=== PATIENT | male | born 1960 | race Caucasian/White ===

== ENCOUNTER 2016-10-10 14:40 | Emergency (ER) | payer OTHER, MEDICAID ==
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
[2016-10-10 16:01] VITALS: BP 141/83; PULSE 100; RESP 4; TEMP 98.8; O2SAT 931
== END 2016-10-10 16:00 | disposition home or self-care (01) ==
LOC: EDBD 14:40
DX: Z04.1 Encounter for examination and observation following transport accident (principal); V73.6XXA Passenger on bus injured in collision with car, pick-up truck or van in traffic accident, initial encounter; Y92.410 Unspecified street and highway as the place of occurrence of the external cause